=== PATIENT | female | born 1955 | race Caucasian/White ===

== ENCOUNTER → 2018-08-01 | Day surgery (SDC) | payer BC ==
--- NOTE | 2018-08-01 22:40 | OP ---
DATE OF OPERATION: 08/01/2018 PREOPERATIVE DIAGNOSIS: Left breast mass and calcification to the 7 o'clock position, cm from the nipple and left breast mass at 1 o'clock, 5-6 cm from the nipple. POSTOPERATIVE DIAGNOSIS: Left breast mass and calcification to the 7 o'clock position, cm from the nipple and left breast mass at 1 o'clock, 5-6 cm from the nipple. PROCEDURE: Left breast ultrasound guided core biopsies and clip placement. ANESTHESIA: Local. ATTENDING SURGEON: Paige Van M.D. ESTIMATED BLOOD LOSS: Minimal. COMPLICATIONS: None. DESCRIPTION OF PROCEDURE: Patient was made aware of the risks and benefits of the procedure and consented. The left breast 7 o'clock lesion was approached first. Under sterile conditions with 1% lidocaine for local anesthesia, a small nicol was made in the skin. Using a 10 gauge suction biopsy device, inferolateral approach, under ultrasound guidance multiple cores were obtained and submitted for specimen radiograph. This confirmed the presence of calcifications. This is then submitted in formalin to pathology. Likewise under ultrasound guidance, a U-shaped clip was placed into the biopsy region. Well tolerated by the patient. Steri-Strips and a sterile bandage were then applied. Using a different setup with different gloves, the left breast 1 o'clock region was then approached. Under sterile conditions with 1% lidocaine for local anesthesia, a small nicol was made in the skin. Using a 10 gauge suction biopsy device, via lateral approach, under ultrasound guidance multiple cores were obtained and submitted to pathology. Likewise under ultrasound guidance, a bowtie clip was placed in the biopsy region. Well tolerated by the patient. Steri-Strips and a sterile bandage were then applied. Patient was then submitted for post procedure mammogram which will be reported later by radiology. PAIGE VAN M.D. [id number]
--- NOTE | 2018-08-03 17:17 | PATH ---
Surgical Pathology Report Patient Name: WILLIAM KLEIN [facility]. Rec. #: [id number] /Age/Gender: 1955 (Age: 63) / F Account: [id number] Location: [facility] Taken: 08/01/2018 Received: 08/01/2018 Reported: 08/03/2018 Physicians: Paige Van M.D. Specimen(s) Received A: LEFT BREAST 1:00 5-6 CMFN B: LEFT BREAST 7:00 1-5 CMFN Clinical History Non-palpable lesion Mammographic findings: Microcalcifications 7:00 Ultrasound findings: Highly suspicious/malignant Final Diagnosis A. BREAST, LEFT, 1:00, 5-6 CM FN, CORE BIOPSY: FIBROADENOMA WITH ASSOCIATED RARE MICROCALCIFICATIONS. B. BREAST, LEFT, 7:00, 1-5 CM FN, CORE BIOPSY: SCLEROSED INTRADUCTAL PAPILLOMA WITH ASSOCIATED MICROCALCIFICATIONS. Comment: Part B, immunohistochemical stains performed and interpreted at [facility] show the epithelial/ductal cells are positive for E-cadherin; while myoepithelial cells are positive for P63 and smooth muscle myosin heavy chain (SMM-HC). Electronically Signed Toyin Javier M.D. Gross Description A. Received in formalin labeled "left breast biopsy 1:00, 5-6 cmfn," are 6 horton-yellow, cylindrical portions of fibroadipose tissue ranging from 1.3-2.3 cm in length and averaging 0.2 cm in diameter. The specimens are submitted in 2 cassettes. B. Received in formalin labeled "left breast biopsy 7:00, 1-5 cmfn," is a 2.3 x 2.1 x 0.2 cm aggregate of multiple horton-yellow, irregular to cylindrical portions of fibroadipose tissue. The formalin is filtered and the specimen is entirely submitted in 2 cassettes. 08/01/201808/01/2018
== END | disposition home or self-care (01) ==
LOC: FRADUS-SUR 11:44
PROVIDERS: ATTEND Surgery Surgical Oncology
PROC: 0HBU3ZX Excision of Left Breast, Percutaneous Approach, Diagnostic (ICD-10-PCS; principal; 2018-08-01)
DX: D24.2 Benign neoplasm of left breast (principal); N64.89 Other specified disorders of breast; N63.21 Unspecified lump in the left breast, upper outer quadrant; N63.24 Unspecified lump in the left breast, lower inner quadrant
CPT/HCPCS: 19083; 19084; 77065-TC-50; 87899; 88305-TC; 88341-TC; 88342-TC; A4648

== ENCOUNTER → 2018-08-10 | Day surgery (SDC) | payer BC ==
--- NOTE | 2018-08-11 16:21 | PATH ---
Surgical Pathology Report Patient Name: WILLIAM KLEIN [facility]. Rec. #: [id number] /Age/Gender: 1955 (Age: 63) / F Account: [id number] Location: [facility] Taken: 08/10/2018 Received: 08/10/2018 Reported: 08/11/2018 Physicians: Mervat Rosario M.D. Specimen(s) Received A: LEFT BREAST SPECIMEN WITH CALCIFICATIONS POSTERIOR SITE 1 B: LEFT BREAST SPECIMEN WITHOUT CALCIFICATIONS POSTERIOR SITE 1 C: LEFT BREAST SPECIMEN WITH CALCIFICATIONS SITE 2 ANTERIOR D: LEFT BREAST SPECIMEN WITHOUT CALCIFICATIONS SITE 2 ANTERIOR Clinical History Nonpalpable lesion Mammographic findings: Microcalcification, suspicious 2 sites; site 1 = posterior, site 2 = anterior Final Diagnosis A. BREAST, LEFT, SITE #1 POSTERIOR, WITH CALCIFICATIONS, STEREOTACTIC BIOPSY: INTRADUCTAL PAPILLOMA, SCLEROSED, WITH ASSOCIATED CALCIFICATIONS. ECTATIC DUCTS WITH PERIDUCTAL SCLEROSIS. B. BREAST, LEFT, SITE #1 POSTERIOR, WITHOUT CALCIFICATIONS, STEREOTACTIC BIOPSY: BENIGN BREAST TISSUE. C. BREAST, LEFT, SITE #2 ANTERIOR, WITH CALCIFICATIONS, STEREOTACTIC BIOPSY: INTRADUCTAL PAPILLOMA, SCLEROSED, WITH ASSOCIATED CALCIFICATIONS. D. BREAST, LEFT, SITE #2 ANTERIOR, WITHOUT CALCIFICATIONS, STEREOTACTIC BIOPSY: FEW FRAGMENTS OF SCLEROSED PAPILLOMA AND FIBROSIS WITH HISTIOCYTIC REACTION. Electronically Signed Ban Javier M.D. Gross Description A. Received in formalin labeled "left breast with calcifications site 1 posterior," is a 2.5 x 2.0 x 0.3 cm aggregate of horton-yellow, irregular to cylindrical portions of fibroadipose tissue. The formalin is filtered and the specimen is entirely submitted in one cassette. B. Received in formalin labeled "left breast without calcifications site 1 posterior," is a 3.5 x 3.3 x 0.3 cm aggregate of horton-yellow, irregular to cylindrical portions of fibroadipose tissue. The formalin is filtered and the specimen is entirely submitted in 2 cassettes. C. Received in formalin labeled "left breast with calcifications site 2 anterior," is a 2.0 x 1.3 x 0.3 cm aggregate of multiple horton-yellow, irregular to cylindrical portions of fibroadipose tissue. The formalin is filtered and the specimen is entirely submitted in one cassette. D. Received in formalin labeled "left breast without calcifications site 2 anterior," is a 2.0 x 1.8 x 0.3 cm aggregate of multiple horton-yellow, irregular to cylindrical portions of fibroadipose tissue. The formalin is filtered and the specimen is entirely submitted in one cassette. Time to formalin fixation: 5 minutes Total formalin fixation time: Approximately 8 hours. 08/10/201808/10/2018
== END | disposition home or self-care (01) ==
LOC: FMAMMOTONE 08:54
PROVIDERS: ATTEND Surgery Surgical Oncology
PROC: 0HBU3ZX Excision of Left Breast, Percutaneous Approach, Diagnostic (ICD-10-PCS; principal; 2018-08-10)
DX: D24.2 Benign neoplasm of left breast (principal)
CPT/HCPCS: 19081; 19082; 87899; 88305-TC; A4648

== ENCOUNTER 2018-09-12 07:03 | Day surgery (SDC) | payer BC ==
[2018-09-04 12:52] VITALS: BMI 28.9
--- NOTE | 2018-09-06 13:43 | HP ---
Admitting History and Physical - Primary Care Physician PCP: Paige Van - Admission Chief Complaint: Left breast papilloma History of Present Illness: 63 year old who presented with mammogram showing enlarging calcifications4.1 cm in lower ineer quadrant Birad 4. US showed enlarging mass at 1:00 5 cm FN as well as heterogenous area corresponding to calcifications at 7:00 1-5 cm fN. Both of these areas on mammgram had prior clips placed. US core bxs at 7:00 and 1:00 left breast showed intraductal papillomas. Excision was decided after discussion with Dr Cobos. History Source: Patient Limitations to Obtaining History: No Limitations - Past Medical History Additional Past Medical History: H/O Myelitis - Past Surgical History Past Surgical History: Yes: Joint Replacement (Bilateral hip replacement 1997) Additional Past Surgical History: left breast core bxs benign at 7:00 and 1:00 2007 - Smoking History Smoking history: Never smoked Have you smoked in the past 12 months: No Aproximately how many cigarettes per day: 0 - Alcohol/Substance Use Hx Alcohol Use: No Home Medications - Allergies Allergies/Adverse Reactions: Allergies Allergy/AdvReac Type Severity Reaction Status Date / Time iodine Allergy Verified 09/04/18 12:44 - Home Medications Home Medications: Ambulatory Orders Acetaminophen [Tylenol] 325 mg PO Q4H PRN #20 tablet 04/08/13 Gabapentin [Neurontin] 600 mg PO BID 04/08/13 Family Disease History - Family Disease History Family Disease History: CA: Mother (lymphoma 68) Physical Examination Constitutional: Yes: No Distress Breast(s): Yes: Other (diffusely nodular without palpable masses or adenopathy post bx changes left breast S/P core bxs x 2) Problem List - Problems (1) Intraductal papilloma of left breast Code(s): D24.2 - BENIGN NEOPLASM OF LEFT BREAST Assessment/Plan Left breast wide excision with mammogram needle localization
[2018-09-12] MEDS ORDERED: SODIUM CHLORIDE 0.9% P/F 10 ML VIAL IJ ONE (09:19)
[2018-09-12] MEDS ORDERED: ONDANSETRON 4 MG/2 ML VIAL ONE ×2 (09:19→11:38)
[2018-09-12] MEDS ORDERED: ceFAZolin SODIUM 1 GM VIAL ONE (09:19)
[2018-09-12] MEDS ORDERED: DEXAMETHASONE SOD PHOSPHATE 4 MG/1 ML VIAL ONE (09:19)
[2018-09-12] MEDS ORDERED: LIDOCAINE HCL/PF 2% SDV 5ML VIAL ONE (09:19)
[2018-09-12] MEDS ORDERED: PROPOFOL 20 ML ONE (10:05)
[2018-09-12] MEDS ORDERED: MIDAZOLAM HCL 2 MG/2 ML SINGLE DOSE VIAL ONE (10:05)
[2018-09-12] MEDS ORDERED: BUPIVACAINE HCL 0.25% 125 MG/50 ML VIAL ONE (10:57)
[2018-09-12] MEDS ORDERED: BUPIVACAINE HCL/PF 0.25% (2.5MG/ML) 10 ML VIAL IJ ONE (11:05)
[2018-09-12] MEDS ORDERED: ONDANSETRON 4 MG/2 ML VIAL IVPUSH PRN (12:38)
[2018-09-12] MEDS ORDERED: oxyCODONE HCL 5 MG TABLET PO PRN ×2 (12:38)
[2018-09-12] MEDS ORDERED: LACTATED RINGERS SOLUTION 1,000 ML IV SCH (12:45)
[2018-09-12] MEDS ORDERED: ACETAMINOPHEN 325 MG TABLET (FP) PO ONE (12:45)
[2018-09-12 12:56] VITALS: TEMP 97.4
[2018-09-12 15:33] VITALS: BP 106/58; PULSE 72
--- NOTE | 2018-09-12 16:26 | OP ---
DATE OF OPERATION: 09/12/2018 PREOPERATIVE DIAGNOSIS: Left breast papillomatosis. POSTOPERATIVE DIAGNOSIS: Left breast papillomatosis. PROCEDURE: Left mammographically localized wide excision. ANESTHESIA: General, intubated. ATTENDING SURGEON: Paige Van MD ESTIMATED BLOOD LOSS: Minimal. COMPLICATIONS: None. PROCEDURE: Patient was made aware of the risks and benefits of the procedure and consented. Preoperatively patient went to the radiology suite where a wire was placed in each of the index lesions. She was then brought to the operating room table, and after general anesthesia was induced, the patient was intubated. The operative site was prepped and draped in usual sterile fashion. A periareolar incision was then made. Using electrocautery, thick skin flaps were made. The needles were withdrawn through the puncture site and a wire and tissue around the wire where then sharply excised and submitted with a short suture superior, long suture lateral. Specimen radiographed to confirm the presence of the index lesions. The specimen was submitted for permanent sectioning. The wound was then closed with deep 2-0, and 3-0 Vicryl followed by a running subcuticular 4-0 Monocryl. Steri-Strips and sterile dressing were then applied. The patient having tolerated the procedure well was transferred to recovery in excellent condition. PAIGE VAN M.D. [id number]
--- NOTE | 2018-09-15 14:31 | PATH ---
Surgical Pathology Report Patient Name: WILLIAM KLEIN [facility]. Rec. #: [id number] /Age/Gender: 1955 (Age: 63) / F Account: [id number] Location: [facility] Taken: 09/12/2018 Received: 09/12/2018 Reported: 09/15/2018 Physicians: Paige Van M.D. Specimen(s) Received LEFT BREAST WIDE EXCISION Clinical History Discordant prior biopsies left breast Final Diagnosis BREAST, LEFT, WIDE EXCISION: INTRADUCTAL PAPILLOMA, SCLEROSED, WITH ASSOCIATED MICROCALCIFICATIONS. PRIOR BIOPSY SITE CHANGES PRESENT. Comment: Immunohistochemical stains performed and interpreted at [facility] show P63 and SMM-HC highlight myoepithelial cells; while E-cadherin is positive. Electronically Signed Toyin Javier M.D. Gross Description Received in formalin, labeled "left breast wide excision," is a 4.8 x 4.3 x 2.3 cm. horton-yellow, irregular, portion of fibroadipose tissue with 2 needle localization wires present. There is a short suture marking the superior aspect and a long suture marking the lateral aspect, per the surgeon. There is no skin or nipple present. The specimen is inked as follows: superior and lateral blue; inferior green; medial yellow; anterior red; deep black. The specimen is serially sectioned from superior to inferior. Sectioning reveals a 2.8 x 1.2 x 0.9 cm horton, indurated and focally abutting the anterior margin. [employer] sections are submitted in 12 cassettes as follows: 6-0-ngsxtjie and sequentially submitted mass from superior to inferior (each with anterior margin); 7-superior margin; 3-8-fyudxjfh margin; 10-deep margin; 11-medial margin; 12-lateral margin. Time to formalin fixation: 10 minutes Total formalin fixation time: Approximately 31 hours. 09/13/2018 saudi09/13/2018
== END 2018-09-12 14:40 | disposition home or self-care (01) ==
LOC: FASU 07:03
PROVIDERS: ATTEND Surgery Surgical Oncology
PROC: 0HBU0ZX Excision of Left Breast, Open Approach, Diagnostic (ICD-10-PCS; principal; 2018-09-12 09:30)
DX: D24.2 Benign neoplasm of left breast (principal)
CPT/HCPCS: 19125; 19281; 19282; 88307-TC; 88341-TC; 88342-TC; 94760